=== PATIENT | female | born 1960 | race African-American/Black ===

== ENCOUNTER 2019-08-03 13:33 | Outpatient (CLI) | payer OTHER ==
--- NOTE | 2019-08-03 14:47 | BD ---
Exam: DEXA Bone Density 08/03/19 HISTORY: 59-year-old postmenopausal female for screening. Lumbar Spine: BMD (g/cm2) T-SCORE L1 1.065 0.7 L2 1.255 2.1 L3 1.062 -0.2 L4 1.145 0.8 L1-L4 1.130 0.8 Right Femoral Neck: 0.802 -0.4 Total Proximal Right Femur: 0.930 -0.1 Impression:Normal bone mineral density. POS: TPC
== END 2019-08-03 13:34 | disposition home or self-care (01) ==
LOC: BICMAMMO 13:33
PROVIDERS: ATTEND Internal Medicine Rheumatology
DX: Z13.820 Encounter for screening for osteoporosis (principal); M05.89 Other rheumatoid arthritis with rheumatoid factor of multiple sites
CPT/HCPCS: 77080

== ENCOUNTER 2019-08-16 16:31 | Outpatient (CLI) | payer OTHER ==
[2019-08-16 17:24] LABS: #Eosinphils 0.1 thou/uL (0.0-0.7); #Lymphocytes 2.5 thou/uL (1.20-3.40); #Monocytes 0.5 thou/uL (0.11-0.59); #Neutrophils 4.8 thou/uL (1.40-6.50); %Basophils 0.1 % (0.0-1.0); %Eosinophils 1.4 % (0.0-10.0); %Lymphocytes 31.5 % (21.0-51.0); %Monocytes 5.8 % (0.0-10.0); %Neutrophils 61.1 % (42.0-75.0); Hemoglobin 12.8 g/dL (12.0-16.0); Mean Corpuscular HGB CONC 34.2 g/dL (32.0-36.0); Mean Corpuscular Hemoglobin 32.4 pg (27.0-31.0); Mean Corpuscular Volume 94.7 fL (78.0-98.0); Mean Platelet Volume 7.3 fL (7.4-10.4); Platelet Count 286 thou/uL (130-400); RBC Distribution Width 13.7 % (11.5-14.5); Red Blood Cell (RBC) Count 3.94 mill/uL (4.20-5.40); White Blood Cell (WBC) Count 7.9 thou/uL (4.8-10.8)
[2019-08-16 17:50] LABS: Anion Gap 13 mmol/L (10-20); BUN (Urea Nitrogen) 13 mg/dL (9.8-20.1); Calc. Creatinine Clearance 0 mL/min (70-130); Calcium 9.5 mg/dL (7.8-10.44); Carbon Dioxide 26 mmol/L (22-29); Chloride 103 mmol/L (98-107); Estimated GFR-MDRD 72; Glucose 92 mg/dL (70-105); Potassium 3.9 mmol/L (3.5-5.1); Sodium 138 mmol/L (136-145)
== END 2019-08-16 16:32 | disposition home or self-care (01) ==
LOC: LABBT 16:31
PROVIDERS: ATTEND Specialist
DX: Z01.818 Encounter for other preprocedural examination (principal); R92.1 Mammographic calcification found on diagnostic imaging of breast
CPT/HCPCS: 80048; 85025; 93005; 93010

== ENCOUNTER 2019-08-17 06:48 | Day surgery (SDC) | payer OTHER ==
[2019-08-16 16:16] VITALS: BMI 42.3
--- NOTE | 2019-08-17 09:14 | MMO ---
MAMMO Brst Loc Dev Mammo Guide History: Right breast calcifications Comparison: None. Findings: Patient was brought to the mammography suite. All questions were answered. The patient's right breast calcifications were accessed from a lateral approach. The right breast was prepped and draped in normal sterile fashion. Using a 7 cm needle the breast calcifications were accessed. The calcifications are seated within the curvature of the wire. Patient tolerated the procedure well without complication. Impression: Technically successful mammographic guided right breast calcification needle localization . The calcifications are seated within the curvature of the wire.
--- NOTE | 2019-08-17 09:15 | MMO ---
MAMMO Brst Loc Dev Mammo Guide History: Left breast calcifications Comparison: None. Findings: Patient was brought to the mammography suite. Her questions were answered. The patient's left breast was prepped and draped in normal sterile fashion. Using mammographic guidan ce and a 5 cm needle, the breast calcifications were accessed and are seated within the curvature of the wire. Impression: Technically successful mammographic guided needle localization. Calcifications are seated within the curvature of the wire.
[2019-08-17] MEDS ORDERED: Dexamethasone 20 MG/5 ML VIAL ONE (10:27)
[2019-08-17] MEDS ORDERED: Lidocaine 1% PF 5 ML VIAL ONE (10:27)
[2019-08-17] MEDS ORDERED: Rocuronium Bromide 10 MG/ML (10ML VIAL) ONE (10:27)
[2019-08-17] MEDS ORDERED: PHENYLEPHRINE-NS 100 MCG/ML 10 ML SYRINGE ONE (10:27)
[2019-08-17] MEDS ORDERED: PROPOFOL 200 MG/20 ML VIAL ONE (10:27)
[2019-08-17] MEDS ORDERED: Ondansetron PF 4 MG/2 ML Vial ONE (10:27)
--- NOTE | 2019-08-17 12:39 | MMO ---
Specimen radiograph: 08/17/2019 HISTORY: Evaluate specimen radiograph following excisional biopsy of right breast calcifications FINDINGS: A specimen radiograph is submitted of right breast following excisional biopsy. The provide d breast tissue contains the localization wire as well as targeted calcifications. Calcifications are noted at the E5 and F5 regions extending to the E7 and F7 regions. IMPRESSION: Provided specimen radiograph on the right contains the targeted calcifications.
--- NOTE | 2019-08-17 13:00 | MMO ---
Specimen radiograph: 08/17/2019 HISTORY: Evaluate specimen from excisional biopsy of left breast status post localization of microcal cifications. FINDINGS: A radiograph from excisional biopsy of left breast is provided. The provided specimen radio graph contains the localization wire as well as multiple microcalcifications centrally. IMPRESSION: Specimen radiograph contains the targeted microcalcifications.
--- NOTE | 2019-08-18 09:54 | OP ---
DATE OF PROCEDURE: 08/17/2019 PREOPERATIVE DIAGNOSIS: Bilateral potentially concerning clusters of microcalcifications within her breast. POSTOPERATIVE DIAGNOSIS: Bilateral potentially concerning clusters of microcalcifications within her breast. PROCEDURE PERFORMED: Bilateral needle localized excisional biopsies of breast calcifications. ANESTHESIA: General with laryngeal mask airway. INDICATIONS: The patient is a 59-year-old obese black female. She had recent mammogram revealing potentially concerning clusters of microcalcifications bilaterally. She feels that she is unable to have a stereotactic biopsy because she is unable to lay prone and therefore presents for needle localized excisional biopsy. DESCRIPTION OF PROCEDURE: Before going to the operating room, bilateral needle localization was performed by Dr. Keller in Radiology. Needle localization was excellent as the calcifications were at the tip of the needle bilaterally. Informed consent was obtained. The patient was taken to the operating room, where general anesthesia was obtained with the patient in supine position. Bilateral breasts and localizing needles were prepped with ChloraPrep and draped in sterile fashion. Attention was turned first to the right breast. On the right breast, the calcifications were lateral and the needle entered at about the 9 o'clock radian. On the left breast, the calcifications were also lateral and the needle entered at about the 3 o'clock radiant. On the right side, the calcifications were about 6 cm from the tip of the needle. I therefore created a counter incision about 2 to 3 cm superior to the needle entry site. Dissection was carried through skin and subcutaneous tissue. Flaps were raised inferiorly and the localizing needle and wire were identified. I dissected along the wire until I was about 3 cm from the tip of the wire. At that point, the needle was removed and the wire was replaced to the incision. The tissue into which the wire entered was grasped with Allis clamps and dissected deeply. At the point that I thought I could transect the breast tissue underneath, I came across the deep/medial margin. Unfortunately, I encountered the tip of the wire. I therefore dissected another cm or two deeply and transected the tissue and it was removed as a large lump around the wire. There was a "flap" where I had started the transection that was still kept in continuity with the rest of the lump of tissue. The specimen was oriented with sutures and passed off the field for mammography. This revealed that the calcifications were within the larger lump of tissue rather than within the flap at the end of the tissue. Meticulous hemostasis was obtained with electrocautery. The wound was closed in layers with 3-0 and 4-0 Monocryl. Additional local anesthetic was infiltrated during closure and Dermabond was placed externally. Attention was then turned to the left breast. On the left breast, the tip of the wire was only about 4 cm from the needle entry site. I therefore infiltrated local anesthetic and created a 4 cm incision overlying the localizing needle. Dissection was carried in a cm or so and then the tissue was grasped with Allis clamps and dissected as a wide lump around the localizing wire. It was removed intact and passed off the field for specimen mammography, which revealed presence of calcifications. The wound was irrigated. All irrigant was aspirated. Meticulous hemostasis was obtained. The wound was closed with 3-0 and 4-0 Monocryl and Dermabond placed externally. There were no complications with either side. The patient tolerated the procedure well and blood loss was negligible. Job ID: [id number]
== END 2019-08-17 16:45 | disposition home or self-care (01) ==
LOC: MERGE 06:48 → MAMMO 06:48 → SDC 16:45
PROVIDERS: ATTEND Specialist
DX: N60.12 Diffuse cystic mastopathy of left breast (principal); N60.11 Diffuse cystic mastopathy of right breast; Z79.899 Other long term (current) drug therapy; Z79.82 Long term (current) use of aspirin; E11.9 Type 2 diabetes mellitus without complications; I10 Essential (primary) hypertension; M06.9 Rheumatoid arthritis, unspecified
CPT/HCPCS: 19281; 76098; 88307; J1100; J2001; J2405; J2704